=== PATIENT | female | born 1960 | race Caucasian/White ===

== ENCOUNTER 2017-04-07 10:26 | Emergency (ER) | payer OTHER ==
[2017-04-07 11:12] VITALS: BP 114/60
--- NOTE | 2017-04-07 11:50 | RAD ---
INDICATION: Pain at the base of the LEFT thumb for 3 weeks. Feels a lump at the base of the thumb. History of fibromyalgia. COMPARISON: No relevant prior exams available on the [facility] PACS for comparison. TECHNIQUE: AP, lateral, and oblique views LEFT hand. REPORT: Normal articular alignment. Negative for fracture. Mild joint space narrowing, osteophytosis and subchondral sclerosis at the basal joint of the thumb. Mild overlying soft tissue swelling. 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
--- NOTE | 2017-04-07 12:05 | UC ---
Viktor Ochoa Benjamin, scribed for Prasad Null MD on 04/07/17 at 1128 . Hand/Wrist HPI - HPI Summary HPI Summary: 56yo female c/o left palm pain for 3 weeks. Pt thought it was arthritis, but just yesterday, pt noticed a bump at the base of his left thumb. Pt denies any traumatic injury or any swelling in the area. PMHx of crohns and fibromyalgia. FHX of CA and CAD. - History Of Current Complaint Chief Complaint: UCUpperExtremity Stated Complaint: HAND PAIN Time Seen by Provider: 04/07/17 11:17 Hx Obtained From: Patient ?: No Onset/Duration: Lasting Weeks - 3 weeks, Still Present, Worse Since - yesterday Severity Initially: Mild Severity Currently: Moderate Pain Intensity: 3 Pain Scale Used: 0-10 Numeric Aggravating Factor(s): Movement Alleviating Factor(s): Nothing Associated Signs And Symptoms: Positive: Negative. Negative: Swelling, Numbness /Tingling - Allergies/Home Medications Allergies/Adverse Reactions: Allergies Allergy/AdvReac Type Severity Reaction Status Date / Time No Known Allergies Allergy Verified 04/07/17 11:05 PMH/Surg Hx/FS Hx/Imm Hx GI/ History: Other Other GI/ History: crohn's; fibromyalgia - Surgical History Surgical History: Yes Surgery Procedure, Year, and Place: Csection, tubal - Family History Known Family History: Positive: Cardiac Disease, Other - CA Negative: Diabetes - Social History Occupation: Employed Full-time Lives: Alone Alcohol Use: None Substance Use Type: None Smoking Status (MU): Heavy Every Day Tobacco Smoker Amount Used/How Often: 1 PPD When Did the Patient Quit Smoking/Using Tobacco: 1 ppd - Immunization History Most Recent Influenza Vaccination: 2017 Review of Systems Constitutional: Negative Skin: Negative Eyes: Negative ENT: Negative Respiratory: Negative Cardiovascular: Negative Gastrointestinal: Negative Genitourinary: Negative Motor: Negative Neurovascular: Negative Musculoskeletal: Arthralgia - left hand pain Neurological: Negative Psychological: Negative All Other Systems Reviewed And Are Negative: Yes Physical Exam Triage Information Reviewed: Yes Vital Signs: Initial Vital Signs Temp 99.3 F 04/07/17 11:06 Pulse 95 04/07/17 11:06 Resp 16 04/07/17 11:06 BP 114/60 04/07/17 11:06 Pulse Ox 99 04/07/17 11:06 Vital Signs Reviewed: Yes Eyes: Positive: Conjunctiva Clear ENT: Positive: Normal ENT inspection Neck: Positive: Other: - FROM Respiratory: Positive: No respiratory distress, No accessory muscle use Cardiovascular: Positive: Pulses Normal Abdomen Description: Negative: Distended Musculoskeletal: Positive: Other: - Right hand without swelling, redness, deformity. She has some mild tenderness base of right thumb with bony prominence, but no fluctuance. 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 Radiology Interpretation Completed By: Radiologist - ED physician has reviewed this radiology report and agrees. Hand/Wrist Course/Dx - Course Course Of Treatment: Reviewed pts medication and allergy lists. Blood pressure noted. Female with DJD. FU PMD. - Differential Dx/Diagnosis Provider Diagnoses: osteorarthritis base of thumb right hand Discharge - Discharge Plan Condition: Good Disposition: HOME Patient Education Materials: Osteoarthritis (ED) Referrals: Dannielle Muñiz NP [Primary Care Provider] - 7 Days The documentation as recorded by the Viktor vazquez Benjamin accurately reflects the service I personally performed and the decisions made by , Prasad Null MD.
== END 2017-04-07 12:10 | disposition home or self-care (01) ==
LOC: UCEAST 10:26
DX: M18.11 Unilateral primary osteoarthritis of first carpometacarpal joint, right hand (principal); Z72.0 Tobacco use
CPT/HCPCS: 99211; G0463

== ENCOUNTER 2018-01-05 11:32 | Emergency (ER) | payer OTHER ==
--- OUTSIDE RECORDS SUMMARY | 2018-01-05 11:47 | XMS REPORT ---
:1960 External Reference #:[id number] Author Organization [facility] Address [address] [place] [address] Phone [phone] Care Team Providers Name Role Phone Alber Ferrara Care Team Information Economic Specialist Unavailable Payers Type Date Identification Numbers Payment Provider Subscriber Commercial PayID: [id number] [employer] [place] Sherley Ramon [address] [place] [address] Problems Description No Information Social History Description No Information Available Allergies, Adverse Reactions, Alerts Description No Information Medications Description No Information Results Description No Information Procedures Description No Information Plan of Care No Information Available
[2018-01-05 12:49] VITALS: BP 104/76
--- NOTE | 2018-01-05 13:09 | UC ---
Eye Complaint HPI - HPI Summary HPI Summary: right eye tearing x 2 days no redness, no pain , no change in her vision , no photophobia, no injury, no fb sensation - History of Current Complaint Chief Complaint: UCEye Stated Complaint: RT EYE COMPLAINT Time Seen by Provider: 01/05/18 12:59 Hx Obtained From: Patient Onset/Duration: Gradual Onset, Lasting Days - 2, Still Present Timing: Constant Severity Initially: Moderate Severity Currently: Moderate Pain Intensity: 0 Location of Injury: Other - right eye tearing Aggravating Factor(s): Nothing Alleviating Factor(s): Nothing Associated Signs And Symptoms: Positive: Drainage (Clear) - right eye. Negative : Photophobia, Drainage (Purulent), Vision Impairment Bilateral, Vision Impairment Right, Vision Impairment Left, Fever, Swelling - Allergies/Home Medications Allergies/Adverse Reactions: Allergies Allergy/AdvReac Type Severity Reaction Status Date / Time No Known Allergies Allergy Verified 01/05/18 12:42 Home Medications: Home Medications Loratadine [Claritin 10 MG CAP] 10 mg PO DAILY 01/05/18 [History Confirmed 01/05] PMH/Surg Hx/FS Hx/Imm Hx - Additional Past Medical History Additional PMH: Crohns Fibromylagia [ End ] Respiratory History: COPD - Surgical History Surgical History: Yes Surgery Procedure, Year, and Place: Csection, tubal - Family History Known Family History: Positive: Cardiac Disease, Other - CA Negative: Diabetes - Social History Alcohol Use: None Substance Use Type: None Smoking Status (MU): Former Smoker Amount Used/How Often: 1 PPD When Did the Patient Quit Smoking/Using Tobacco: October Household Exposure Type: Cigarettes - Immunization History Most Recent Influenza Vaccination: 2017 Review of Systems Constitutional: Negative Skin: Negative ENT: Negative Respiratory: Negative Cardiovascular: Negative Gastrointestinal: Negative Is Patient Immunocompromised?: No All Other Systems Reviewed And Are Negative: Yes Physical Exam Triage Information Reviewed: Yes Appearance: Well-Appearing, No Pain Distress, Well-Nourished Vital Signs: Initial Vital Signs Temp 98.2 F 01/05/18 12:43 Pulse 86 01/05/18 12:43 Resp 18 01/05/18 12:43 BP 104/76 01/05/18 12:43 Pulse Ox 86 01/05/18 12:43 Vital Signs Reviewed: Yes Eye Exam: Normal Eyes: Positive: Conjunctiva Clear, Other: - clear discharge right eye ENT: Positive: Normal ENT inspection, Hearing grossly normal, Pharynx normal, Pharyngeal erythema. Negative: Nasal congestion, Nasal drainage Neck: Positive: Supple, Nontender, No Lymphadenopathy Respiratory Exam: Normal Respiratory: Positive: Chest non-tender, Lungs clear, Normal breath sounds Cardiovascular: Positive: RRR, Pulses Normal Abdominal Exam: Normal Skin Exam: Normal Eye Complaint Course/Dx - Differential Dx/Diagnosis Provider Diagnoses: blocked tearduct right eye Discharge - Sign-Out/Discharge Documenting (check all that apply): Patient Departure All imaging exams completed and their final reports reviewed: No Studies - Discharge Plan Condition: Stable Disposition: HOME Prescriptions: Fluticasone NASAL SPRAY 50MCG* [Flonase NASAL SPRAY 50MCG*] 2 spray BOTH NARES DAILY #1 btl Patient Education Materials: Blocked Tear Duct (ED) Referrals: No Primary Care Phys,NOPCP [Primary Care Provider] - 2 Days - Billing Disposition and Condition Condition: STABLE Disposition: Home
== END 2018-01-05 13:24 | disposition home or self-care (01) ==
LOC: UCCORT 11:32
DX: H04.551 Acquired stenosis of right nasolacrimal duct (principal); J44.9 Chronic obstructive pulmonary disease, unspecified; Z87.891 Personal history of nicotine dependence
CPT/HCPCS: 99212; G0463